=== PATIENT | male | born 1945 | race Caucasian/White ===

== ENCOUNTER 2021-08-15 15:25 | Emergency (ER) | payer OTHER, MEDICAID, SELFPAY ==
[2021-08-15 15:31] VITALS: BP 160/93; PULSE 103; RESP 16; TEMP 36.6; O2SAT 100; BMI 26.5
--- NOTE | 2021-08-15 16:17 | ED.GENADULT ---
HPI - General Adult General Chief complaint: General Medical Stated complaint: low on medication Time Seen by Provider: 08/15/21 15:43 Source: patient and family Mode of arrival: ambulatory Limitations: no limitations History of Present Illness HPI narrative: 75-year-old male with a past medical history of hypertension, AFib on Eliquis, coronary artery disease status post CABG 2 months ago, asthma, hyperlipidemia, insulin-dependent diabetes here with request of medication refill. Patient tells me that he was living in [place] but decided to move in with his son who lives locally in the area. He is working on [employer] at his [employer] and establishing a primary care doctor here in [place]. He does have Medicare. He tells me he has about 4-5 days left worth of his medications. He does have adequate supply of his insulin but ran out of the needles which attached his insulin 10. He has no physical complaints. Related Data Previous Rx's Medication Instructions Recorded albuterol sulfate 90 mcg/actuation 2 inh INHALATION Q4-6H PRN #1 ea 08/15/21 breath activated powder inhaler apixaban 5 mg tablet (Eliquis) 5 mg PO BID #60 tab 08/15/21 atorvastatin 20 mg tablet (Lipitor) 20 mg PO BEDTIME #30 tab 08/15/21 furosemide 20 mg tablet 20 mg PO DAILY #30 tab 08/15/21 glipizide 2.5 mg tablet, extended 2.5 mg PO DAILY #30 tab 08/15/21 release 24 hr hydralazine 100 mg tablet 100 mg PO TID #90 tab 08/15/21 insulin syringe-needle U-100 0.5 #100 ea 08/15/21 mL 31 gauge x 5/16 (BD Insulin Syringe Ultra-Fine) metformin 500 mg tablet 500 mg PO BID #60 tab 08/15/21 Allergies Allergy/AdvReac Type Severity Reaction Status Date / Time No Known Allergies Allergy Verified 08/15/21 15:57 Review of Systems Review of Systems: Yes all other systems are reviewed and are negative Constitutional: Constitutional: Reports no additional constitutional complaints, Denies body ache(s), Denies chills, Denies fever(s), Denies headache(s) and Denies weakness Eyes: Eyes: Reports no additional eye complaints and Denies change in vision ENT: Reports system reviewed and no additional complaints, except as documented, Denies dizziness, Denies headache(s), Denies nasal congestion, Denies nasal discharge and Denies neck pain Cardiovascular: Cardiovascular: Reports no additional cardiovascular complaints, Denies chest pain, Denies leg edema and Denies dyspnea Respiratory: Respiratory: Reports no additional respiratory complaints, Denies cough and Denies dyspnea Gastrointestinal: Gastrointestinal: Reports no additional gastrointestinal complaints, Denies abdominal pain, Denies diarrhea, Denies nausea and Denies vomiting Genitourinary: Genitourinary: Denies urinary incontinence Musculoskeletal: Musculoskeletal: Reports no additional musculoskeletal complaints, Denies back pain, Denies arthralgias, Denies joint swelling, Denies neck pain, Denies numbness and Denies tingling Integumentary/Breasts: Skin/Breast: Reports system reviewed and no additional complaints, except as docu and Denies rash Neurologic: Reports system reviewed and no additional complaints, except as documented, Denies Abnormal speech present, Denies dizziness, Denies headache(s), Denies numbness, Denies tingling and Denies weakness PMF Past Medical History Attestation statement: The following information was validated with the patient. Source: old records reviewed and nursing notes reviewed Medical History Bypass graft stenosis Diabetes Vision blurred Social History Social History Advance Directives: No Advance Directives Information Provided: No Physical Exam Vital Signs: Vital Signs: Last Vital Signs Temp 98 F 08/15/21 15:31 Pulse 103 H 08/15/21 15:31 Resp 16 08/15/21 15:31 BP 160/93 H 08/15/21 15:31 Pulse Ox 100 08/15/21 15:31 Body Mass Index 26.5 Const: General: cooperative, healthy appearing, comfortable and no acute distress Orientation/consciousness: patient oriented x3 Limitations: no limitations HENMT: Head: Yes normal to inspection Ears: hearing grossly normal bilaterally General nose exam: Normal external nose present Face and sinus: Yes normal facial exam Mouth: Normal oral and palatal mucosa present Throat: Yes posterior oropharynx normal Eyes: General: appearance normal, both eyes and all related structures Pupils: Equal, round and reactive pupils present Neck: Neck: Yes normal visual inspection Chest: Chest palpation & inspection: normal inspection of the chest Resp: Effort & Inspection: normal respiratory effort Auscultation: clear to auscultation bilaterally Cardio: Rate: regular rate Rhythm: regular rhythm Peripheral pulses: Peripheral pulses 2+ throughout GI: Inspection: Yes normal to inspection Palpation (GI): Soft to palpation and nontender Auscultation: normal bowel sounds Back/Spine/Pelvis: Thoracic/Lumbar Spine: thoracic and lumbar spine normal to inspection Skin: General skin exam: no rashes or lesions noted Neuro: General: patient oriented x3, no focal motor deficits and normal sensation to monofilament Cranial nerves: Yes Equal, round and reactive pupils present Cognition (Neuro): normal cognition Speech: No Abnormal speech present Gait exam (Neuro): Normal gait present Motor exam (neuro): 5/5 motor strength present throughout Extrem: General: Yes normal to inspection Course Course Course Narrative: 75-year-old male here requesting medication refill due to moving here and not having a primary care doctor or insurance. No physical complaints. 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 He is here with family. I did give the patient a 30 day supply of his medications and recommend he promptly fill out his application and establish a primary care doctor. Reviewed worrisome signs and symptoms of when to return to the emergency department. Comfortable discharge home. Medical Decision Making Medical Records Medical records reviewed: Yes I reviewed the patient's medical records. Lab Data Lab results reviewed: Yes I reviewed the patient's lab results. Discharge Plan Discharge Clinical Impression: Medication refill Patient Disposition: Home, Self-Care Instructions: Medicine Refill (ED) Prescriptions: New furosemide 20 mg tablet 20 mg PO DAILY Qty: 30 RF: 0 atorvastatin [Lipitor] 20 mg tablet 20 mg PO BEDTIME Qty: 30 RF: 0 hydralazine 100 mg tablet 100 mg PO TID Qty: 90 RF: 0 metformin 500 mg tablet 500 mg PO BID Qty: 60 RF: 0 Eliquis 5 mg tablet 5 mg PO BID Qty: 60 RF: 0 glipizide 2.5 mg tablet extended release 24 hr 2.5 mg PO DAILY Qty: 30 RF: 0 albuterol sulfate 90 mcg/actuation aerosol powdr breath activated 2 inh inhalation Q4-6H PRN (Reason: shortness of breath or wheezing) Qty: 1 RF: 0 (DME) insulin syringe-needle U-100 [BD Insulin Syringe Ultra-Fine] 0.5 mL 31 gauge x 5/16 syringe See Rx Instructions .Route Qty: 100 RF: 0 Referrals: Physician,None [Primary Care Provider] - 2 days Interventions: ED Discharge Assessment Last Done: 08/15/21 16:11 Discharge Date/Time: 08/15/21 16:13
== END 2021-08-15 16:13 | disposition home or self-care (01) ==
PROVIDERS: Emergency Provider Emergency Medicine Emergency Medical Services
DX: Z76.0 Encounter for issue of repeat prescription (principal); E11.9 Type 2 diabetes mellitus without complications; I10 Essential (primary) hypertension; I48.91 Unspecified atrial fibrillation; I25.10 Atherosclerotic heart disease of native coronary artery without angina pectoris; J45.909 Unspecified asthma, uncomplicated; Z79.01 Long term (current) use of anticoagulants; Z79.4 Long term (current) use of insulin; Z95.1 Presence of aortocoronary bypass graft
CPT/HCPCS: 99283

== ENCOUNTER 2021-09-08 14:51 | Outpatient (REF) | payer MEDICARE, MEDICAID, SELFPAY ==
[2021-09-08 15:10] LABS: MANUAL DIFF FLAG NO
[2021-09-08 16:00] LABS: Basophils Percent Auto 0.4 % (0-2); Eosinophils Absolute Auto 0.3 X10*3/uL (0.0-0.4); Eosinophils Percent Auto 4.2 % (0-4); Hematocrit 22.4 % (42.0-52.0); Hemoglobin 7.1 g/dl (14.0-18.0); Imm Gran Abs Auto 0.03 X10*3/uL (0.00-0.03); Imm Gran Pct Auto 0.4 % (0.0-0.4); Lymphocytes Absolute Auto 0.9 X10*3/uL (1.2-4.9); Lymphocytes Percent Auto 12.5 % (20-40); Mean Corpuscular HGB Conc 31.7 g/dl (31.0-36.0); Mean Corpuscular Hemoglobin 29.8 pg (27.0-33.0); Mean Corpuscular Volume 94.1 fL (80.0-98.0); Mean Platelet Volume 11.9 fL (9.4-12.4); Monocytes Absolute Auto 0.8 X10*3/uL (0.1-1.2); Neutrophils Absolute Auto 5.15 x10*3/uL (2.0-8.3); Neutrophils Percent Auto 71.5 % (45-73); Platelet Count 261 X10*3/uL (160-400); Red Blood Count 2.38 X10*6/uL (4.60-5.80); Red Cell Distribution Width 15.4 % (11.0-16.0); White Blood Count 7.2 X10*3/uL (4.8-10.8)
[2021-09-08 16:25] LABS: Alanine Aminotransferase 55 U/L (0-40); Alkaline Phosphatase 87 U/L (39-117); Anion Gap 13 (12-20); Aspartate Amino Transferase 27 U/L (5-37); Bilirubin Total 0.4 mg/dL (0.0-1.0); Blood Urea Nitrogen 44 mg/dL (9-16); Calcium 9.1 mg/dL (8.4-10.2); Carbon Dioxide 24 mmol/L (22-29); Chloride 108 mmol/L (96-108); Cholesterol 108 mg/dL; Estimated Glomerular Filt Rate 26; Glucose Random 164 mg/dL (60-115); Potassium 4.8 mmol/L (3.3-5.1); Sodium 140 mmol/L (135-145); Total Protein 6.4 g/dL (6.5-8.0)
[2021-09-08 16:37] LABS: Creatinine Urine 47.14 mg/dL; Microalbum/Creatinine Ratio Ur 14.8 ug/mg cr
[2021-09-08 16:46] LABS: Thyroid Stimulating Hormone 1.15 uIU/mL (0.32-4.0)
[2021-09-09 03:39] LABS: Estimated Average Glucose 114 mg/dL; Hemoglobin A1c % 5.6 %
== END 2021-09-08 14:52 | disposition home or self-care (01) ==
LOC: HO.LAB 14:51
PROVIDERS: PCP Internal Medicine; Visit Provider Internal Medicine
DX: I48.91 Unspecified atrial fibrillation (principal); I10 Essential (primary) hypertension; E78.00 Pure hypercholesterolemia, unspecified; R53.83 Other fatigue; Z95.1 Presence of aortocoronary bypass graft
CPT/HCPCS: 36415; 80053; 82043; 82465; 83036; 84443; 85025

== ENCOUNTER 2021-10-01 16:22 | Outpatient (REF) | payer MEDICARE, MEDICAID, SELFPAY ==
--- NOTE | ~2021-10-01 | US_ITS ---
EXAMINATION: US RETROPERITONEAL COMPLETE (RENAL) CLINICAL INFORMATION: This is a 75-year-old male with acute renal failure.. COMPARISON: None TECHNIQUE: Real-time imaging of the kidneys and bladder. FINDINGS: RIGHT KIDNEY: 10.7 x 6.0 x 5.5 cm (SAG x AP x TRV). There is moderate hydronephrosis with dilatation of the infundibula and the renal pelvis. Renal cortical thickness is normal. No calculi or focal parenchymal lesions. LEFT KIDNEY: 10.9 x 4.8 x 4.6 cm (SAG x AP x TRV). There is moderate hydronephrosis with dilatation of the infundibula in the renal pelvis. Portions of the ureter are visualized and also appear dilated. Renal cortical thickness is normal. No calculi or focal parenchymal lesions. There is a simple anechoic cyst measuring 1.5 x 1.7 x 1.7 cm extending off the mid pole. There is a poorly visualized echogenic area in the upper pole measuring 1.0 x 1.1 x 1 0.8 cm which may represent a solid mass. Further investigation to exclude malignancy is suggested. BLADDER: Well distended and normal. Bilateral ureteral jets are not demonstrated. Prevoid bladder volume is 532 mL. Postvoid bladder volume is 481 mL. There is a soft tissue solid mass extending into the lower urinary bladder. It is hypervascular and measures 3.4 x 2.4 x 1.6 cm. I'm unable to determine if this is an extension of the prostate gland or if it represents a bladder tumor. This could be obstructing the bladder outlet causing dilatation of the bladder as well as bilateral hydroureteronephrosis. The crosstable was evaluated and appears diffusely heterogeneous with a volume of 48 mL. This is mildly enlarged. US/US retroperitoneal comp IMPRESSION: 1. There is bilateral hydroureterectasis. The hydronephrosis is moderate. The ureters appear dilated. The bladder appears dilated. There may be a bladder outlet mass versus prostate mass.. 2. There is a possible solid mass in the upper pole of the left kidney measuring 1.0 x 1.1 x 0.8 cm. Follow-up examination is recommended to exclude malignancy.
== END 2021-10-01 16:23 | disposition home or self-care (01) ==
LOC: HO.US 16:22
PROVIDERS: PCP Internal Medicine; Visit Provider Internal Medicine
DX: N17.9 Acute kidney failure, unspecified (principal); N18.9 Chronic kidney disease, unspecified
CPT/HCPCS: 76770

== ENCOUNTER 2021-10-31 10:58 | Outpatient (REF) | payer MEDICARE, MEDICAID, SELFPAY ==
--- NOTE | ~2021-10-31 | CT_ITS ---
EXAMINATION: CT ABDOMEN AND PELVIS WITHOUT CONTRAST CLINICAL INFORMATION: Bladder lesion. COMPARISON: Renal ultrasound 10/01/2021. TECHNIQUE: Multidetector volumetric imaging was performed from the superior aspect of the liver through the pubic symphysis. Sagittal and coronal reformatted images were obtained on the technologist's workstation. This CT examination was performed using dose optimization techniques as appropriate, variously including the following: *Automated exposure control *Adjustment of mA and/or kV according to patient size (this includes techniques or standardized protocols for targeted exams where dose is matched to indication/reason for exam; i.e. extremities or head) *Use of iterative reconstruction technique DLP: 425 mGy-cm FINDINGS: LUNG BASES: A 1.6 cm x 0.9 cm soft tissue density is noted within the subpleural periphery of the left lung base not fully included within the image [id number] (series 3 image 1). Partial visualization is made of epicardial pacer leads and a possible stent within the right coronary artery. Scattered coronary artery calcific atherosclerotic plaques are noted. LIVER, GALLBLADDER, AND BILIARY TREE: The liver is normal in size, shape, and attenuation. No focal hepatic lesion or biliary ductal dilatation is present. The gallbladder is unremarkable with no evidence of radiopaque gallstones, gallbladder wall thickening, or obvious pericholecystic inflammatory changes. PANCREAS: Unremarkable. SPLEEN: Unremarkable. ADRENAL GLANDS: Unremarkable. KIDNEYS AND URETERS: Bilateral moderate-marked hydronephrosis is noted with near complete obscuration of the central sinus fat of the kidneys. The previously noted exophytic 1.4 cm lesion associated with the interpolar segment of the left kidney (23 Hounsfield units) is identified and corresponds to findings attributed to a simple cyst on the comparison ultrasound of 10/01/2021. The possible solid mass in the upper pole the left kidney measuring 1.1 cm in maximum dimension is without a definitive correlate on the current examination. A 6 mm dystrophic cortical calcification is present at the superior pole the right kidney. BLADDER: An intermediate density mass is contiguous with the base of the urinary bladder measuring 3.2 cm x 2.5 cm x 2.2 cm (transverse by AP by SI). The mass demonstrates a lobulated contour and is contiguous with the base of the urinary bladder. (Series 8 image 54, series 3 image [id number]). Marked bilateral ureterectasis is present with the ureters measuring approximately up to 1 cm in diameter. A 4 mm x 4 mm calculus (900 Hounsfield units is present within the right ureter approximately 1 cm proximal to the right ureterovesicular junction. The adjacent ureter is dilated beyond the diameter of this calculus suggesting that this calculus is nonobstructing. Urinary bladder is distended and demonstrates mild diffuse mural thickening aside from the findings noted above. The mass at the base of the urinary bladder is inseparable from the urinary bladder wall and adjacent prostate. The prostate demonstrates an AP dimension of 3.0 cm, within normal limits. GASTROINTESTINAL TRACT: Mild diverticulosis of the sigmoid colon and descending colon is noted. Scattered diverticulosis is present elsewhere within the colon. Appendix is normal in appearance. No intestinal dilatation noted. The sigmoid and small bowel mesentery is are normal in appearance. No free intraperitoneal fluid or gas collections. ABDOMINAL WALL: No significant hernia is appreciated. LYMPH NODES: No abdominal or pelvic lymphadenopathy noted. No presacral or iliac lymphadenopathy noted. VASCULAR: Moderate scattered diffuse calcific atherosclerosis. PELVIC VISCERA: As noted above, the prostate measures 3 cm in AP dimension. Benign-appearing dystrophic calcifications are present within the prostate.. OSSEOUS STRUCTURES: No suspicious skeletal lesions are noted within the abdomen pelvis. No vertebral body compression deformities. CT/CT abdomen pelvis wo con IMPRESSION: Unenhanced CT of the abdomen pelvis: * Single 3.2 cm x 2.5 cm x 2.2 cm (transverse by AP by SI) lesion at the base of the urinary bladder projecting within the urinary bladder lumen. This finding is associated with marked bilateral ureterectasis and hydronephrosis and is grossly unchanged in size compared with renal ultrasound 10/01/2021. This finding is suspicious for urothelial neoplasm. Tumor emanating from the adjacent prostate could have a similar appearance. No pelvic lymphadenopathy. *The 1.1 cm indeterminate left kidney upper pole mass noted on the renal ultrasound exam of 10/01/2021 and is without a correlate on this current exam and could be further evaluated with MRI or contrast-enhanced CT as clinically indicated. *Incompletely visualized 1.6 cm subpleural nodule within the left lung base not fully included within the image [id number]. Recommend consideration of dedicated CT of the thorax to more completely visualized this lesion assess for additional pulmonary lesions as clinically indicated.
== END 2021-10-31 10:59 | disposition home or self-care (01) ==
LOC: HO.CT 10:58
PROVIDERS: PCP Internal Medicine; Visit Provider Internal Medicine
DX: N28.9 Disorder of kidney and ureter, unspecified (principal); N32.9 Bladder disorder, unspecified
CPT/HCPCS: 74176